=== PATIENT | female | born 1945 | race Caucasian/White ===

== ENCOUNTER 2018-06-05 05:24 | Inpatient (IN) ==
[2018-06-05] MEDS ORDERED: ceFAZolin 2 GM Premix Inj 2 GM/100 ML BAG IV.SIG PRN (05:42)
[2018-06-05] MEDS ORDERED: Chlorhexidine Gluconate 2% 1 Pack (2 Cloths) TOPICAL SCH (05:45)
[2018-06-05] MEDS ORDERED: Chlorhexidine 4% Topical 120 APPLIC/120 ML Bottle TOPICAL SCH (05:45)
[2018-06-05] MEDS ORDERED: Sodium Chlor 0.9% Inj 80 ML, Bupivacaine Liposo PF 1.3% Inj 20 ML P-ARTICULR SCH ×2 (05:45)
[2018-06-05] MEDS ORDERED: Metoprolol Tartrate 25 MG Tablet PO SCH (05:45)
[2018-06-05] MEDS ORDERED: Tranexamic Acid Inj 1,025 MG in Sodium Chlor 0.9% Inj 100 ML IV.SIG SCH ×2 (06:00→08:44)
[2018-06-05] MEDS ORDERED: Sodium Chlor 0.9% Inj 500 ML IV.SIG SCH (06:00)
[2018-06-05] MEDS ORDERED: Bupivacaine/Dextrose 0.75% Inj 2 ML Ampul ONE (06:02)
[2018-06-05] MEDS ORDERED: Propofol Inj 500 MG/50 ML Vial ONE (06:02)
[2018-06-05] MEDS ORDERED: Bupivacaine Liposomal PF 1.3% Inj 20 ML Vial ONE (06:15)
[2018-06-05] MEDS ORDERED: Clindamycin Inj 900 MG/6 ML Vial ONE (06:34)
[2018-06-05] MEDS ORDERED: Lidocaine PF 1% Inj 5 ML Syringe INFILTRATN ONE (07:22)
[2018-06-05] MEDS ORDERED: Phenylephrine/NS 1000 MCG/10ML Syringe IV.PUSH ONE (07:22)
[2018-06-05] MEDS ORDERED: SODIUM CHLOR 0.9% IV.SIG ONE (08:50)
[2018-06-05] MEDS ORDERED: TRANEXAMIC ACID IV.SIG ONE (08:50)
[2018-06-05] MEDS ORDERED: Post-op Orders (for Pharmacy) OTHER STA (08:50)
[2018-06-05] MEDS ORDERED: Morphine Inj 4 MG/ML Vial IV.PUSH PRN (08:50)
[2018-06-05] MEDS ORDERED: Acetaminophen 325 MG Tablet PO PRN (08:50)
[2018-06-05] MEDS ORDERED: Aluminum/Magnesium/Simethacone Susp 30 ML UDC PO PRN (08:50)
[2018-06-05] MEDS ORDERED: Zolpidem Tartrate 5 MG Tablet PO PRN (08:50)
[2018-06-05] MEDS ORDERED: Bisacodyl 10 MG Supp RECTAL PRN (08:50)
--- NOTE | 2018-06-05 08:54 | P.DCO ---
- Physical Therapy Physical Therapy: Gait training Knee: Total knee, Protocol: Right, Gait training, Full weight bearing Right Lower Extremity Weight Bearing: Weight bearing as tolerated Right Lower Extremity Range of Motion: Active ROM (Active, active assisted and passive range of motion. Range of motion goal is 0 extension to 130 of flexion which is what was accomplished in the operating room.) - Nursing Nursing: Dressing changes Dressing changes: Daily dressing change, Coverderm/Primapore Additional instructions: Do not remove Dermabond Prineo. - Certification Need for Home Health services: I have seen patient Natacha Cifuentes on 06/05/18. My clinical findings support the need for the requested home health care services because: Need for Home Health Services: Deconditioned with increased weakness, Limited ability to care for self, High risk of falls Homebound Certification: I certify that my clinical findings support that this patient is homebound because: Homebound Certification: Post-op weakness, Unsteady gait/balance, Unsafe to leave home unassisted
[2018-06-05] MEDS ORDERED: [UNRECOGNIZED DRUG - REMARK] PO SCH (09:00)
[2018-06-05] MEDS ORDERED: Non-Formulary Drug (Omega-3s-Dha-Epa-Fish Oil [Omega-3 Fish Oil] 1 CAP) PO SCH (09:00)
[2018-06-05] MEDS ORDERED: COENZYME Q10 30 MG PO SCH (09:00)
--- NOTE | 2018-06-05 09:01 | P.OP ---
- Preoperative Diagnosis (1) Primary osteoarthritis of right knee - Postoperative Diagnosis (1) Primary osteoarthritis of right knee Date of procedure: 06/05/18 Procedure: Right total knee arthroplasty using [place] Triathlon prosthesis (uncemented). Anesthesia: regional (Adductor canal block), local (Exparel), spinal Surgeon: Pineda Szymanski MD Manager Configuration: Maurizio Lora Estimated blood loss (mL): 150 Tourniquet time (min): 0 Pathology: none sent Operation and Findings: Indications and Findings: This 72-year-old woman has had right knee pain for several years which began to increase substantially about 6 months ago. This is been functionally disabling and activities of daily living. She has an ambulation tolerance of 1/4 mile. She has pain when sitting. She has pain when ascending and descending stairs and standing from a seated position. She has not responded to conservative measures including analgesics, activity modification, exercise, intra-articular corticosteroids and physical therapy. She uses ambulatory aids. She cannot take anti-inflammatory agents because of gastritis. Physical findings showed some genu valgum with medial laxity, tenderness in the medial compartment greater than lateral. In addition she has crepitation on motion. X-rays show significant loss of articular cartilage to [id number] in the medial compartment, osteophytes and subchondral sclerosis. Operative findings: There is significant osteoarthritis in the right knee with loss of articular cartilage to [id number] in the medial compartment, erosion to expose subchondral bone on the lateral compartment and patellofemoral disease as well. There were osteophytes. There is subchondral sclerosis in the medial compartment. The prosthesis used was a [place] Triathlon prosthesis. The femur was a size 5, cruciate retaining, uncemented. The tibial baseplate was a size 5 Tritanium with a 9 mm cruciate retaining X3 polyethylene spacer. The patella was a size 32 mm asymmetric Tritanium backed. The patient was brought to the clean-air operating suite after administration of a regional anesthetic by adductor canal block. A spinal anesthetic was administered. The position was supine with a small bolster under the hip on the operative side. A pneumatic tourniquet was applied to the upper thigh. The lower extremity was prepped with alcohol, Hibiclens and ChloraPrep and draped in the usual manner with the knee draped free. An appropriate timeout procedure was carried out. An incision was made from about 3 fingerbreadths above the superior medial pole of patella down the tibial tubercle on the medial side. The incision was deepened through the subcutaneous tissue to the retinacular structures which were exposed medially and laterally. A medial retinacular incision was made from the superior medial pole of patella down the tibial tubercle and up into the quadriceps tendon, splitting it longitudinally in the medial one third. The patella was reflected. The infrapatellar fat pad was debulked. The anterior cruciate ligament was excised. Medial and lateral meniscectomies were initiated. Fenestrations were made in the distal femur and proximal tibia for intramedullary referencing guides. The distal femoral cutting guide and jig were assembled for a 5, 8 mm cut. When this was fit into position,the cutting block was stabilized with pins. The jig was removed. The distal femoral cut was completed with the oscillating saw. The sizing guide was positioned in place along Whitesides line and the epicondylar axis and stabilized with pins. The femoral size was determined as noted above. The 4-in-1 cutting block was positioned in place. Anterior and posterior cuts were made followed by posterior and anterior chamfer cuts taking care to prevent injury to ligamentous structures. Osteophytes were trimmed from the distal femur. A bone plug was placed into the fenestration of the distal femur. The proximal tibia was exposed. The medial and lateral meniscectomies were completed. The proximal tibial cutting guide was positioned in place and stabilized with a pin for rotation. The depth of cut was verified with a stylus off the high side. The cutting block was stabilized with pins. The jig was removed. The depth of cut was verified and adjusted appropriately with the use of the spacer block. The proximal tibial cut was made with the oscillating saw taking care to prevent injury to neurovascular and ligamentous structures. Proximal tibial bone was removed. Local anesthetic was administered with Exparel in the posterior capsule. The tibial baseplate trial was positioned in place. After verifying the appropriate size, the base plate trial was positioned in place along with its spacer. The femoral component was impacted into place. The alignment was checked. The tibial baseplate was pinned in place on the tibia. Attention was directed to the patella. The patella drill guide was positioned in place for the appropriate sized patella. Patellar drilling was then carried out. The trial patella was positioned in place. The knee was taken through a range of motion which was easily 0 extension to 130. The patella trial was removed. The femoral drill holes were made. The femoral trials were removed. The tibial spacer was removed. A bone plug was placed into the proximal tibia. The tibial punch was impacted through the proximal tibial punch guide. This was all removed followed by placement of the tibial drill guide. The tibial drill holes were made. The guide was removed. The cut ends of bone were cleaned with pulse lavage. The tibial baseplate was impacted into place and seated appropriately. The spacer was inserted. The the femoral component was impacted into place and seated appropriately. The patella component was seated with the patellar vice and tightened appropriately. The knee was taken through a range of motion which was comparable to the previous range of motion with excellent stability in flexion and extension and appropriate patellofemoral tracking. The remainder of the Exparel was injected throughout the knee as a local anesthetic. Drains were brought out the superior lateral aspect of the suprapatellar pouch. Wound closure commenced using 0 Vicryl interrupted [id number] sutures for the capsular and fascial structures, 2-0 Vicryl interrupted simple sutures with buried knots for the subcutaneous tissues and 4-0 Monocryl, continuous subcuticular closure for the skin. The wound was dressed with Dermabond Prineo followed by a dry sterile dressing. Sterile soft roll with a cooling pad and Renzo bandage from the base of the toes to mid thigh were applied. Patient was transferred from the operating room to the recovery room in satisfactory condition having tolerated procedure well. Counts were correct. Specimens: None. Estimated blood loss: 150 mL
[2018-06-05] MEDS: Loratadine 10 MG Tablet PO SCH (09:44)
[2018-06-05] MEDS: Calcium Carbonate 500 MG Tablet PO SCH (09:45)
[2018-06-05] MEDS: Senna/Docusate Sodium 8.6/50 MG Tablet PO SCH ×2 (09:45→20:39)
[2018-06-05] MEDS: Tolterodine Tartrate LA 4 MG Capsule PO SCH ×2 (09:45→20:39)
[2018-06-05] MEDS: Levothyroxine 75 MCG Tablet PO SCH (09:45)
[2018-06-05] MEDS: Ketorolac Inj 30 MG/ML (IVP) Vial IV.PUSH SCH ×3 (09:46→20:38)
[2018-06-05] MEDS ORDERED: *morphine SULFATE 4 MG/ML PERIprocedure ONLY ONE (11:15)
--- NOTE | 2018-06-05 11:16 | XR ---
EXAM DATE: 06/05/2018 10:56 AM EDT AGE/SEX: 72 years / Female INDICATIONS: Post op right knee surgery. CLINICAL DATA: This is the patient's initial encounter. Patient reports that signs and symptoms have been present for 1 day and indicates a pain score of 0/10. MEDICAL/SURGICAL HISTORY: None. None. COMPARISON: POI, XR KNEE COMPLETE, RIGHT, 03/26/2018. . FINDINGS: The patient is status post right total knee arthroplasty. Tibial and femoral components and patellar components appear well seated. Surgical drain, subcutaneous air and fluid identified. CONCLUSION: Postoperative changes right knee arthroplasty. Electronically signed by: David Childress MD 06/05/2018 11:15 AM EDT
--- NOTE | 2018-06-05 17:42 | P.CON ---
History of Present Illness Service: Hospitalist Consult date: 06/05/18 Requesting Physician: Pineda Szymanski Reason for Consult: Medical management Primary Care Provider: Pankaj Concepcion MD Family Provider: Pankaj Concepcion MD Chief Complaint: Right knee pain History of Present Illness: Patient is a 72-year-old female who has a past medical history of arthritis, asthma, GERD, hyperlipidemia, hypertension, hypothyroidism with partial thyroidectomy, and [place] was admitted by surgery due to increasing right knee pain over several years. It became significantly worse 6 months ago and has been interfering with daily living. Patient failed conservative management. X-rays showed significant loss of articular cartilage to bone-on- bone in the medial compartment, osteophytes and subchondral sclerosis. Right total knee arthroplasty was performed 06/05/[address] Szymanski. Patient is seen in room preparing to go to the restroom. She reports that she is in some pain but it is well denies any chest pain or shortness of breath. No nausea vomiting or diarrhea. She has not yet voided post surgery. Review of Systems All other systems reviewed negative except as stated in HPI PMFSH - History History Provided By: Patient, Medical Record - Medical History Medical History: Medical History (Last Reviewed 06/05/18 @ 17:35 by LARISSA Gonsalves) Arthritis Asthma Cataract GERD (gastroesophageal reflux disease) Gastritis High cholesterol History of endoscopy Hx of headache Hypertension Hypothyroidism Joint pain Kidney stones Myocardial infarction Vertigo Wears glasses - Surgical History Surgical History: Surgical History (Last Reviewed 06/05/18 @ 17:35 by LARISSA Gonsalves) History of colonoscopy History of partial thyroidectomy History of pelvic surgery History of repair of left rotator cuff Hx of cholecystectomy Hx of tonsillectomy - Family History Family History: Family History (Last Reviewed 06/05/18 @ 17:35 by LARISSA Gonsalves) Other Family history non-contributory - Tobacco History Second Hand Smoke Exposure: No Smoking Status: Never smoker - Alcohol History How Often Do You Have a Drink Containing Alcohol: Never - Substance Use History Substance History: No History of Abuse - Travel History Recent Travel in the [place] Within the Last 8 Weeks: No Recent Travel Out of the Country Within the Last 8 Weeks: No - Immunization History Tetanus Immunization: <5 Years Hx Influenza Vaccine This Season: Yes Medications and Allergies Active Medications: Active Medications Acetaminophen (Tylenol) 650 mg PO Q6H PRN PRN Reason: Pain Less Than 3 On Scale Hydrocodone Bitart/Acetaminophen ([place] 7.5/325) 1 tab PO Q4H PRN PRN Reason: PAIN SCALE 4 TO 6 MODERATE Hydrocodone Bitart/Acetaminophen ([place] 7.5/325) 2 tab PO Q6H PRN PRN Reason: PAIN SCALE 7 TO 10 SEVERE Al Hydrox/Mg Hydrox/Simethicone (Mag-Al Plus Susp Liq) 30 ml PO Q6H PRN PRN Reason: INDIGESTION Al Hydroxide/Mg Hydroxide (Milk Of Magnesia Liq) 30 ml PO BID PRN PRN Reason: Mild Constipation Albuterol (Ventolin Hfa Inh) 1 puff INH Q4H PRN PRN Reason: Shortness Of Breath Aspirin (Aspirin Chew) 81 mg PO BID [facility] Last Admin: 06/05/18 09:43 Dose: Not Given Bisacodyl (Dulcolax Supp) 10 mg RECTAL DAILY PRN PRN Reason: SEVERE CONSITIPATION Chlorhexidine Gluconate (Chlorhexidine 2% Cloth) 3 pack TOPICAL TUNNEL DRIER OPERATOR [facility] Stop: 06/08/18 05:39 Last Admin: 06/05/18 05:40 Dose: 3 pack Chlorhexidine Gluconate (Hibiclens 4% Topical) 1 applicatio TOPICAL ONCE [facility] Stop: 06/09/18 05:44 Last Admin: 06/05/18 06:00 Dose: 1 applicatio Diphenhydramine HCl (Benadryl) 25 mg PO Q6H PRN PRN Reason: ITCHING Cefazolin/Sodium Chloride (Ancef 2 Gm Premix Inj) 2 gm in 100 mls @ 200 mls/hr IV.SIG TUNNEL DRIER OPERATOR PRN PRN Reason: PRE-OP GIVE IN OR Stop: 06/05/18 22:00 Last Infusion: 06/05/18 07:58 Dose: Infused Lactated Ringer's (Lr 1000 Ml Inj) 1,000 mls @ 30 mls/hr IV.SIG .Q24H [facility] Stop: 06/08/18 05:39 Last Infusion: 06/05/18 07:58 Dose: Infused Sodium Chloride (Ns Inj) 500 mls @ 30 mls/hr IV.SIG .Q10H [facility] Stop: 06/08/18 05:39 Cefazolin Sodium 1,000 mg/ (Sodium Chloride) 100 mls @ 200 mls/hr IV.SIG Q6H [facility] Stop: 06/06/18 01:29 Last Infusion: 06/05/18 13:43 Dose: Infused Lactated Ringer's (Lr 1000 Ml Inj) 1,000 mls @ 80 mls/hr IV.CONT .[id number] [facility] Last Admin: 06/05/18 09:44 Dose: 80 mls/hr Ketorolac Tromethamine (Toradol Inj) 15 mg IV.PUSH Q6H [facility] Stop: 06/07/18 03:01 Last Admin: 06/05/18 15:47 Dose: 15 mg Lactulose (Lactulose Liq) 30 ml PO DAILY PRN PRN Reason: SEVERE CONSITIPATION Levothyroxine Sodium (Synthroid) 75 mcg PO DAILY [facility] Last Admin: 06/05/18 09:45 Dose: Not Given Loratadine (Claritin) 10 mg PO DAILY [facility] Last Admin: 06/05/18 09:44 Dose: Not Given Losartan Potassium (Cozaar) 25 mg PO DAILY [facility] Last Admin: 06/05/18 09:44 Dose: Not Given Metoprolol Tartrate (Lopressor) 25 mg PO TUNNEL DRIER OPERATOR [facility] Stop: 06/08/18 05:39 Last Admin: 06/05/18 06:20 Dose: Not Given Miscellaneous Information ([facility] Nursing Information) 1 each OTHER UNSCH PRN PRN Reason: SEE LABEL COMMENTS Stop: 06/06/18 09:18 Morphine Sulfate (Morphine Inj) 2 mg IV.PUSH Q3H PRN PRN Reason: BREAKTHROUGH PAIN Ondansetron HCl (Zofran Odt) 4 mg PO Q6H PRN PRN Reason: NAUSEA OR VOMITING Pantoprazole Sodium (Protonix) 40 mg PO DAILY [facility] Last Admin: 06/05/18 09:45 Dose: Not Given Povidone Iodine (Betadine 5% Antisepsis Kit) 1 applicatio EACH NARE TUNNEL DRIER OPERATOR [facility] Stop: 06/08/18 05:39 Last Admin: 06/05/18 06:00 Dose: 1 applicatio Senna/Docusate Sodium (Breana-Colace) 1 tab PO BID [facility] Last Admin: 06/05/18 09:45 Dose: Not Given Sennosides (Senokot) 17.2 mg PO BID PRN PRN Reason: Moderate Constipation Sodium Chloride (Ns Flush) 2 ml IV.FLUSH PRN PRN PRN Reason: FLUSH AFTER USING IV ACCESS Sodium Chloride (Ns Flush) 2 ml IV.FLUSH BID [facility] Tolterodine Tartrate (Detrol La) 4 mg PO BID [facility] Last Admin: 06/05/18 09:45 Dose: Not Given Vitamin D (Vitamin D3) 1,000 unit PO DAILY [facility] Last Admin: 06/05/18 09:46 Dose: Not Given Zolpidem Tartrate (Ambien) 5 mg PO HS PRN PRN Reason: INSOMNIA Allergies Allergy/AdvReac Type Severity Reaction Status Date / Time adhesive Allergy Severe SKIN TEAR Verified 06/05/18 05:53 penicillin G Allergy Mild ITCHING; Verified 06/05/18 05:53 RASH albuterol Allergy Itching Verified 06/05/18 05:53 codeine AdvReac Nausea/Vomi Verified 06/05/18 05:53 ting Home Medications Medication Instructions Recorded Confirmed Type albuterol sulfate [ProAir HFA] 1 puff INHALATION Q4-6H PRN 05/24/18 06/05/18 History calcium citrate 400 mg PO DAILY 05/24/18 06/05/18 History cholecalciferol (vitamin D3) 1,000 unit PO DAILY 05/24/18 06/05/18 History [Vitamin D3] coenzyme Q10 [Co Q-10] 30 mg PO DAILY 05/24/18 06/05/18 History esomeprazole magnesium [Nexium] 40 mg PO DAILY 05/24/18 06/05/18 History fexofenadine [Janet Allergy] 180 mg PO DAILY 05/24/18 06/05/18 History fexofenadine [Janet Allergy] 180 mg PO DAILY 05/24/18 06/05/18 History levothyroxine 75 mcg PO DAILY 05/24/18 06/05/18 History losartan 25 mg PO DAILY 05/24/18 06/05/18 History hzjvh-[id number]-epa-fish oil [[place]-3 1 cap PO DAILY 05/24/18 06/05/18 History Fish Oil] trospium 20 mg PO BID 05/24/18 06/05/18 History Physical Exam Vital signs: Vital Signs 06/05/18 06:11 06/05/18 06:15 06/05/18 09:17 Temperature 97.9 F 97.5 F L Pulse Rate 81 83 91 H Respiratory Rate 18 16 Blood Pressure 126/70 99/57 L Pulse Oximetry 99 95 100 06/05/18 09:30 06/05/18 09:45 06/05/18 10:00 Temperature Pulse Rate 79 71 67 Respiratory Rate 16 16 16 Blood Pressure 106/64 128/75 117/70 Pulse Oximetry 100 100 100 06/05/18 11:12 06/05/18 12:00 06/05/18 16:00 Temperature 97.2 F L 96.3 F L Pulse Rate 66 65 79 Respiratory Rate 16 19 17 Blood Pressure 120/70 114/62 130/64 Pulse Oximetry 100 97 97 Intake & Output 06/04/18 06/05/18 06/05/18 18:59 06:59 18:59 Intake Total 1987.25 / Output Total 395 / 395 Balance 1593.25 / 1593.25 Weight 102.3 kg Intake: IV 1310.25 / 1310.25 LR 1000 mL Inj 1,000 ML @ 30 1000 / 1000 mls/hr IV.SIG .Q24H [facility] Rx#: [id number] Cyklokapron Inj 1,025 MG In NS 110.25 / 110.25 Inj 100 ML @ 200 mls/hr IV.SIG ONCE [facility] Rx#:[id number] Ancef 2 GM Premix Inj 2 gm In 100 / 100 100 ml @ 200 mls/hr IV.SIG TUNNEL DRIER OPERATOR PRN Rx#:[id number] Ancef Inj 1,000 MG In NS Inj 100 / 100 100 ML @ 200 mls/hr IV.SIG Q6H [facility] Rx#:[id number] Oral 240 / 240 Anesthesia Amount 290 / 290 Other 148 / 148 Output: Urine 0 / 0 Estimated Blood Loss 140 / 140 Wound Drainage 255 / 255 # 1 Right Knee Hemovac 255 / 255 Other: Other Intake Source Saline Solution # Voids 1 Date of Last Bowel Movement 06/04/18 Weight On Admission 102.3 kg Narrative: GENERAL: Well-nourished, well-developed adult female in no obvious distress. SKIN: Warm and dry. HEAD: Atraumatic. Normocephalic. CARDIOVASCULAR: Regular rate and rhythm. RESPIRATORY: No accessory muscle use. Clear to auscultation. Breath sounds equal bilaterally. GASTROINTESTINAL: Abdomen soft, non-tender, non-distended. Positive bowel sounds. MUSCULOSKELETAL: Extremities without clubbing, cyanosis, or edema. No obvious deformities. Right knee in canvas brace with drain. Sanguinous drainage. Right foot well perfused with no significant swelling. NEUROLOGICAL: Awake and alert. No obvious cranial nerve deficits. Motor grossly within normal limits. Normal speech. PSYCHIATRIC: Appropriate mood and affect; insight and judgment good. Assessment and Plan - Plan Patient is a 72-year-old female who has a past medical history of arthritis, asthma, GERD, hyperlipidemia, hypertension, hypothyroidism with partial thyroidectomy, and [place] was admitted by surgery due to increasing right knee pain over several years. Right total knee arthroplasty was performed by Dr. Szymanski. Right total knee arthroplasty -Managed by orthopedics -Case management consulted by orthopedics Hypertension -Continue losartan 25 mg Hypothyroidism -Continue levothyroxine 75 mcg Overactive bladder -Continue trospium Asthma -Albuterol as needed Discussed with: Patient and nurse Thank you for this consult. We appreciate the opportunity to assist you with the medical management of this patient.
[2018-06-06] MEDS: Ketorolac Inj 30 MG/ML (IVP) Vial IV.PUSH SCH ×2 (03:55→09:43)
[2018-06-06 04:32] LABS: Baso # (Auto) 0.1 th/mm3 (0.0-0.2); Baso % (Auto) 0.9 % (0.0-2.0); Eos # (Auto) 0.1 th/mm3 (0.0-0.4); Eos % (Auto) 1.5 % (0.0-4.0); Hematocrit 31.6 % (35.0-46.0); Hemoglobin 10.9 gm/dL (11.6-15.3); Lymph # (Auto) 1.3 th/mm3 (1.0-4.8); Lymph % (Auto) 17.6 % (9.0-44.0); Mean Corpuscular HGB Conc 34.3 % (32.0-36.0); Mean Corpuscular Hemoglobin 31.1 pg (27.0-34.0); Mean Corpuscular Volume 90.5 fL (80.0-100.0); Mean Platelet Volume 8.7 fL (7.0-11.0); Mono # (Auto) 0.6 th/mm3 (0.0-0.9); Mono % (Auto) 7.7 % (0.0-8.0); Neut # (Auto) 5.2 th/mm3 (1.8-7.7); Neut % (Auto) 72.3 % (16.0-70.0); Platelet Count 148 th/mm3 (150-450); Red Blood Count 3.49 mil/mm3 (4.00-5.30); Red Cell Distribution Width 12.8 % (11.6-17.2); White Blood Count 7.2 th/mm3 (4.0-11.0)
[2018-06-06 04:50] LABS: Calcium 8.1 mg/dL (8.5-10.1); Carbon Dioxide 24.8 meq/L (21.0-32.0); Potassium 3.8 meq/L (3.5-5.1)
--- NOTE | 2018-06-06 07:29 | P.PNOP ---
Subjective Interval history: Postop day #1 She is doing relatively well. She has minimal complaints related to the knee at this time. Physical therapy reports that the ambulation distance was 10 feet, then 25 feet. The range of motion was 0 extension to 88 of flexion. Physical Exam Vital signs: Vital Signs 06/05/18 09:17 06/05/18 09:30 06/05/18 09:45 Temperature 97.5 F L Pulse Rate 91 H 79 71 Respiratory Rate 16 16 16 Blood Pressure 99/57 L 106/64 128/75 Pulse Oximetry 100 100 100 06/05/18 10:00 06/05/18 11:12 06/05/18 12:00 Temperature 97.2 F L Pulse Rate 67 66 65 Respiratory Rate 16 16 19 Blood Pressure 117/70 120/70 114/62 Pulse Oximetry 100 100 97 06/05/18 16:00 06/05/18 20:00 06/06/18 00:00 Temperature 96.3 F L 98.7 F 98.9 F Pulse Rate 79 83 103 H Respiratory Rate 17 18 18 Blood Pressure 130/64 105/54 L 93/53 L Pulse Oximetry 97 99 95 06/06/18 04:00 Temperature 98.3 F Pulse Rate 100 H Respiratory Rate 18 Blood Pressure 103/60 Pulse Oximetry 95 Intake & Output 06/05/18 06/06/18 06/06/18 18:59 06:59 18:59 Intake Total 2588.25 / 2588.25 500 / 500 Output Total 395 / 395 60 / 60 Balance 2193.25 / 2193.25 440 / 440 Weight 102.3 kg Intake: IV 1310.25 / 1310.25 100 / 100 LR 1000 mL Inj 1,000 ML @ 80 0 / 0 mls/hr IV.CONT .[id number] [facility] Rx# :[id number] LR 1000 mL Inj 1,000 ML @ 30 1000 / 1000 mls/hr IV.SIG .Q24H [facility] Rx#: [id number] Cyklokapron Inj 1,025 MG In NS 110.25 / 110.25 Inj 100 ML @ 200 mls/hr IV.SIG ONCE [facility] Rx#:[id number] Ancef 2 GM Premix Inj 2 gm In 100 / 100 100 ml @ 200 mls/hr IV.SIG ENGINEER INTERN PRN Rx#:[id number] Ancef Inj 1,000 MG In NS Inj 100 / 100 100 / 100 100 ML @ 200 mls/hr IV.SIG Q6H [facility] Rx#:[id number] Oral 840 / 840 400 / 400 Anesthesia Amount 290 / 290 Other 148 / 148 Output: Urine 0 / 0 Estimated Blood Loss 140 / 140 Wound Drainage 255 / 255 60 / 60 # 1 Right Knee Hemovac 255 / 255 60 / 60 Other: Other Intake Source Saline Solution # Voids 2 4 Date of Last Bowel Movement 06/04/18 06/04/18 Narrative: She is resting comfortably, supine in bed. The dressing is somewhat in disarray. The neurovascular status is intact. The wound is clean and dry. Results - Labs CBC & Chem 7: 06/06/18 03:31 06/06/18 03:31 Laboratory Results - last 24 hr 06/06/18 06/06/18 03:31 03:31 WBC 7.2 RBC 3.49 L Hgb 10.9 L Hct 31.6 L MCV 90.5 MCH 31.1 MCHC 34.3 RDW 12.8 Plt Count 148 L MPV 8.7 Neut % (Auto) 72.3 H Lymph % (Auto) 17.6 [place] % (Auto) 7.7 Eos % (Auto) 1.5 Baso % (Auto) 0.9 Neut # (Auto) 5.2 Lymph # (Auto) 1.3 [place] # (Auto) 0.6 Eos # (Auto) 0.1 Baso # (Auto) 0.1 WBC Differential . Differential Comment Auto diff final Sodium 142 Potassium 3.8 Chloride 108 H Carbon Dioxide 24.8 Anion Gap 9 BUN 15 Creatinine 0.74 Estimated GFR 78 L Random Glucose 108 H Calcium 8.1 L - Imaging Impressions Knee X-Ray 06/05/18 08:48 CONCLUSION: Postoperative changes right knee arthroplasty. - Procedures Right total knee arthroplasty using [place] Triathlon prosthesis (uncemented) on 06/06/2018. Assessment and Plan - Ortho Post Op Day # 1 - Problem List (1) Status post total right knee replacement not using cement Code(s): Z96.651 - Presence of right artificial knee joint Status: Acute Plan: Continue postop care and PT. I have stressed the importance of working on extension as well as flexion. - Assessment and Plan Condition: Good. Orthopedically stable. DVT prophylaxis: TEDs, aspirin, sequentials. Discharge plans: Home with home health care. An appointment was scheduled through the office. Prescriptions: [place] 7.5/325; Patient is having significant pain caused by a right total knee arthroplasty which will last more than 3 days. Trial of Tylenol has not helped. I believe that it is medically necessary to treat patients pain because it is affecting patients ability to participate in postoperative rehabilitation and perform activities of daily living in a comfortable and efficient manner.
--- NOTE | 2018-06-06 07:49 | P.DS ---
Date of admission: 06/05/18 09:10 Primary care physician: Pankaj Concepcion MD Attending physician on discharge: Pineda Anne Anticipated date of discharge: 06/06/18 Brief History from admission: This 72-year-old woman has had long-standing right knee pain nonresponsive to conservative measures as detailed in the history and physical examination. She had limited activities of daily living because of the pain, difficulty walking any distance and aggressive deformity. Her physical findings showed medial laxity, medial tenderness, crepitation throughout the entire range of motion and an effusion. Her x-rays showed severe osteoarthritis with loss of articular cartilage to expose subchondral bone in the medial compartment with osteophytes and subchondral sclerosis. There is also arthritis throughout the knee evidenced by osteophytes. DS: Diagnosis - Discharge Diagnosis (1) Status post total right knee replacement not using cement Status: Acute Diagnosis: Principal (2) Primary osteoarthritis of right knee Status: Acute Diagnosis: Principal DS: Medications - Discharge Medications Prescriptions: hydrocodone-acetaminophen 1 tab PO Q4H PRN 7 Days #42 tab PRN Reason: Pain, Severe DS: Summary Hospital Course: The patient was admitted as noted above. The above noted operative procedure was carried out that day. Preoperatively prophylactic antibiotics were administered Ancef according to protocol. These were continued postoperatively. The patient also received tranexamic acid to help with hemostasis according to protocol. In the postanesthesia care unit there were mechanical methods of DVT prophylaxis in the form of GENIE stockings and sequentials initiated. Physical therapy was initiated on the day of surgery. On postoperative day #1 physical therapy continued. The use of the continuous passive motion device continued. DVT prophylaxis with aspirin 81 mg was initiated at this time. The patient continued physical therapy throughout the hospitalization. The distance walked and range of motion improved throughout the hospitalization. The patient was discharged on postoperative day 1 with the disposition being to home with home health care. An appointment for follow-up was made prior to admission. - Time Spent with Patient Total time spent providing and/or coordinating discharge services: Less than 30 minutes - Quality: VTE Deep Vein Thrombosis/Pulmonary Embolism Present on Admission: No Exam Vital signs: Vital Signs 06/05/18 09:17 06/05/18 09:30 06/05/18 09:45 Temperature 97.5 F L Pulse Rate 91 H 79 71 Respiratory Rate 16 16 16 Blood Pressure 99/57 L 106/64 128/75 Pulse Oximetry 100 100 100 06/05/18 10:00 06/05/18 11:12 06/05/18 12:00 Temperature 97.2 F L Pulse Rate 67 66 65 Respiratory Rate 16 16 19 Blood Pressure 117/70 120/70 114/62 Pulse Oximetry 100 100 97 06/05/18 16:00 06/05/18 20:00 06/06/18 00:00 Temperature 96.3 F L 98.7 F 98.9 F Pulse Rate 79 83 103 H Respiratory Rate 17 18 18 Blood Pressure 130/64 105/54 L 93/53 L Pulse Oximetry 97 99 95 06/06/18 04:00 Temperature 98.3 F Pulse Rate 100 H Respiratory Rate 18 Blood Pressure 103/60 Pulse Oximetry 95 Intake & Output 06/05/18 06/06/18 06/06/18 18:59 06:59 18:59 Intake Total 2588.25 / 2588.25 500 / 500 Output Total 395 / 395 60 / 60 Balance 2193.25 / 2193.25 440 / 440 Weight 102.3 kg Intake: IV 1310.25 / 1310.25 100 / 100 LR 1000 mL Inj 1,000 ML @ 80 0 / 0 mls/hr IV.CONT .[id number] MONY Rx# :[id number] LR 1000 mL Inj 1,000 ML @ 30 1000 / 1000 mls/hr IV.SIG .Q24H MONY Rx#: [id number] Cyklokapron Inj 1,025 MG In NS 110.25 / 110.25 Inj 100 ML @ 200 mls/hr IV.SIG ONCE MONY Rx#:[id number] Ancef 2 GM Premix Inj 2 gm In 100 / 100 100 ml @ 200 mls/hr IV.SIG SEALER OPERATOR PRN Rx#:[id number] Ancef Inj 1,000 MG In NS Inj 100 / 100 100 / 100 100 ML @ 200 mls/hr IV.SIG Q6H MONY Rx#:[id number] Oral 840 / 840 400 / 400 Anesthesia Amount 290 / 290 Other 148 / 148 Output: Urine 0 / 0 Estimated Blood Loss 140 / 140 Wound Drainage 255 / 255 60 / 60 # 1 Right Knee Hemovac 255 / 255 60 / 60 Other: Other Intake Source Saline Solution # Voids 2 4 Date of Last Bowel Movement 06/04/18 06/04/18 Narrative: She is resting comfortably, supine in bed. The dressing is dry and in some disarray. The neurovascular status is intact. The wound is clean and dry and healing well with no signs of infection. Results Procedures completed during hospitalization: Right total knee arthroplasty using [place] Triathlon prosthesis (uncemented) on 06/06/2018. Labs on day of discharge: Labs from last 24 hours 06/06/18 06/06/18 03:31 03:31 WBC 7.2 RBC 3.49 L Hgb 10.9 L Hct 31.6 L MCV 90.5 MCH 31.1 MCHC 34.3 RDW 12.8 Plt Count 148 L MPV 8.7 Neut % (Auto) 72.3 H Lymph % (Auto) 17.6 [place] % (Auto) 7.7 Eos % (Auto) 1.5 Baso % (Auto) 0.9 Neut # (Auto) 5.2 Lymph # (Auto) 1.3 [place] # (Auto) 0.6 Eos # (Auto) 0.1 Baso # (Auto) 0.1 WBC Differential . Differential Comment Auto diff final Sodium 142 Potassium 3.8 Chloride 108 H Carbon Dioxide 24.8 Anion Gap 9 BUN 15 Creatinine 0.74 Estimated GFR 78 L Random Glucose 108 H Calcium 8.1 L - Impressions ITS Impressions Knee X-Ray 06/05/18 08:48 CONCLUSION: Postoperative changes right knee arthroplasty. Discharge Plan - Discharge Disposition Patient Disposition: /Home Health Service - Discharge Condition Condition: Stable - Discharge Order Discharge Orders: Discharge Order (Routine); Ordered 06/06/18 Ordered By: Pineda Anne - Discharge Details Anticipated Discharge Date: 06/06/18 - Physicians Team Primary Care Provider: Pankaj Concepcion Attending Provider: Pineda Anne Other Providers: Ajit Ye DO ; [facility] - Rxs /Orders / Referrals /Forms Prescriptions: New aspirin 81 mg Tablet,Chewable 81 mg PO BID RF: 0 hydrocodone-acetaminophen 7.5-325 mg Tablet 1 tab PO Q4H PRN (Reason: Pain, Severe) 7 Days Qty: 42 RF: 0 Continue albuterol sulfate [ProAir HFA] 90 mcg/actuation Hfa Aerosol Inhaler 1 puff INHALATION Q4-6H PRN (Reason: Shortness Of Breath) calcium citrate 200 mg (950 mg) Tablet 400 mg PO DAILY cholecalciferol (vitamin D3) [Vitamin D3] 1,000 unit Capsule 1,000 unit PO DAILY coenzyme Q10 [Co Q-10] 10 mg Capsule 30 mg PO DAILY esomeprazole magnesium [Nexium] 40 mg Capsule,Delayed Release(Dr/Ec) 40 mg PO DAILY fexofenadine [Janet Allergy] 60 mg Tablet 180 mg PO DAILY fexofenadine [Janet Allergy] 60 mg Tablet 180 mg PO DAILY levothyroxine 75 mcg Capsule 75 mcg PO DAILY losartan 25 mg Tablet 25 mg PO DAILY [id number]-cyo-epa-fish oil [[place]-3 Fish Oil] 300-1,000 mg Capsule 1 cap PO DAILY trospium 20 mg Tablet 20 mg PO BID Referrals: Pankaj Concepcion MD [Primary Care Provider] - See Instructions ( Please call the physician's office to book the appointment to be seen by your Primary Care Physician.) Pineda Anne MD [Physician] - See Instructions - Discharge Instructions Patient Printed Instructions: Hydrocodone/Acetaminophen (By mouth), How to Choose and Use a Walker (GEN), Narcotic Pain Management (DC), Knee Replacement ( DC) Additional Instructions: KEEP YOUR FOLLOWUP APPOINTMENT WITH DR. ANNE. RX FOR NORCO 7.5/325 SENT WITH PATIENT - Post Discharge Care Plan Care Plan Goals: Your Health Problems: Goals to Promote Your Health: * To prevent worsening of your condition * To maintain your health at the optimal level Directions to Meet Your Goals: * Take your medications as prescribed * Follow your dietary instruction * Follow activity as directed * Keep your appointments as scheduled * Take your immunizations and boosters as scheduled * If your symptoms worsen call your PCP * If no PCP go to Urgent Care or Emergency Room Smoking is dangerous to your health. Avoid second hand smoke. You may reach the 24-hour crisis hotline for domestic abuse at . * * Discharge Care Plan Goals for Total Knee Replacement You have undergone knee replacement surgery. Your doctor replaced your painful joint with an artificial joint to relieve pain and restore movement. Here are some goals to help you heal well. Directions to Meet your Goals: 1. Activity & Exercises: * Take pain medicine as directed by your doctor. * Sit in chairs with arms. The arms make it easier for you to stand up or sit down. * Dont sit for more than 30 to 45 minutes at one time. * Nap if you are tired, but dont stay in bed all day. * Sleep with a pillow under your ankle, not your knee. Be sure to change the position of your leg during the night. * Wear the support stockings you were given in the hospital as directed by your surgeon. 2. Prevent Falls/Injury: The talbot to successful recovery is movement with walking and exercising your knee as directed by your doctor. * Arrange your household to keep the items you need handy. Keep everything else out of the way. * Remove items that may cause you to fall, such as throw rugs and electrical cords. * Use nonslip bath mats, grab bars, an elevated toilet seat, and a shower chair in your bathroom * Sit on a shower stool or chair when you shower to keep from falling. * Until your balance, flexibility, and strength improve, use a cane, crutches, a walker, handrails, or someone to help you. * Keep your hands free by using a backpack, varsha pack, apron, or pockets to carry things * Walk up and down stairs with support. Try one step at a time. Use the railing if possible. * Dont drive until your doctor says its OK. * Dont drive while you are taking opioid pain medicine. 3. Precautions: * Prevent infection. Any infection will need to be treated immediately. Call your doctor right away if you think you might have an infection. * Tell your dentist that you have an artificial joint and take antibiotics as prescribed before any dental work. * Tell all your healthcare providers about your artificial joint before any medical procedure. * Maintain a healthy weight. Get help to lose any extra pounds. Added body weight puts stress on the knee. * Your medications may include blood-thinning medicine to prevent blood clots or antibiotics to prevent infection-prevent any falls or cuts 4. Incision Care: * Prevent infection by washing your hands often. If an infection occurs, it will need to be treated right away. * Call your doctor right away if you think you may have an infection. Symptoms include a fever or an incision that leaks white, green, or yellow fluid. * Don't soak your incision in water until your doctor says its OK. This means no hot tubs, bathtubs, or swimming pools. * Follow your doctor's instructions for changing the dressing. * Dont rub the incision, or apply creams or lotions to it. * If you notice any redness or drainage around the bandage site, contact your surgeon's office immediately. 5. Follow-Up: Do Not miss your follow-up appointment. Keep up with all your appointments and yearly check ups When to call your doctor: Call your doctor right away if you have: Fever of 100.4F (38C) or higher, or as directed by your doctor Shaking chills Stiffness, or inability to move the knee Increased swelling in your leg Increased redness, tenderness, or swelling in or around the knee incision Drainage from the knee incision Increased knee pain Call 911: Call 911 right away if you have: Chest pain Shortness of breath Any pain or tenderness in your calf
[2018-06-06] MEDS: Levothyroxine 75 MCG Tablet PO SCH (09:41)
[2018-06-06] MEDS: Loratadine 10 MG Tablet PO SCH (09:41)
[2018-06-06] MEDS: Calcium Carbonate 500 MG Tablet PO SCH (09:42)
[2018-06-06] MEDS: Tolterodine Tartrate LA 4 MG Capsule PO SCH (09:42)
[2018-06-06] MEDS: Senna/Docusate Sodium 8.6/50 MG Tablet PO SCH (09:42)
--- NOTE | 2018-06-06 11:57 | P.PN ---
Subjective Interval history: She is seen sitting up in bedside chair. She tells me that she would like to go home. She is a little sleepy; confirms that she has multiple people at home to assist her. Denies any chest pain or shortness of breath. No dizziness or syncope. No nausea vomiting or diarrhea. Tolerating meals well and having normal urination and bowel movements. Physical Exam Vital signs: Vital Signs 06/05/18 12:00 06/05/18 16:00 06/05/18 20:00 Temperature 97.2 F L 96.3 F L 98.7 F Pulse Rate 65 79 83 Respiratory Rate 19 17 18 Blood Pressure 114/62 130/64 105/54 L Pulse Oximetry 97 97 99 06/06/18 00:00 06/06/18 04:00 06/06/18 08:00 Temperature 98.9 F 98.3 F 98.3 F Pulse Rate 103 H 100 H 96 H Respiratory Rate 18 18 18 Blood Pressure 93/53 L 103/60 124/75 Pulse Oximetry 95 95 95 Intake & Output 06/05/18 06/06/18 06/06/18 18:59 06:59 18:59 Intake Total 2588.25 / 2588.25 600 / 600 Output Total 395 / 395 60 / 60 Balance 2193.25 / 2193.25 540 / 540 Weight 102.3 kg Intake: IV 1310.25 / 1310.25 200 / 200 LR 1000 mL Inj 1,000 ML @ 80 0 / 0 mls/hr IV.CONT .[id number] MONY Rx# :[id number] LR 1000 mL Inj 1,000 ML @ 30 1000 / 1000 mls/hr IV.SIG .Q24H MONY Rx#: [id number] Cyklokapron Inj 1,025 MG In NS 110.25 / 110.25 Inj 100 ML @ 200 mls/hr IV.SIG ONCE MONY Rx#:[id number] Ancef 2 GM Premix Inj 2 gm In 100 / 100 100 ml @ 200 mls/hr IV.SIG INFORMATICS PHYSICIAN PRN Rx#:[id number] Ancef Inj 1,000 MG In NS Inj 100 / 100 200 / 200 100 ML @ 200 mls/hr IV.SIG Q6H MONY Rx#:[id number] Oral 840 / 840 400 / 400 Anesthesia Amount 290 / 290 Other 148 / 148 Output: Urine 0 / 0 Estimated Blood Loss 140 / 140 Wound Drainage 255 / 255 60 / 60 # 1 Right Knee Hemovac 255 / 255 60 / 60 Other: Other Intake Source Saline Solution # Voids 2 4 Date of Last Bowel Movement 06/04/18 06/04/18 Narrative: GENERAL: Well-nourished, well-developed adult female in no obvious distress. SKIN: Warm and dry. HEAD: Atraumatic. Normocephalic. CARDIOVASCULAR: Regular rate and rhythm. RESPIRATORY: No accessory muscle use. Clear to auscultation. Breath sounds equal bilaterally. GASTROINTESTINAL: Abdomen soft, non-tender, non-distended. Positive bowel sounds. MUSCULOSKELETAL: Extremities without clubbing, cyanosis, or edema. No obvious deformities. Right knee in canvas brace with drain. Sanguinous drainage. Right foot well perfused with no significant swelling. NEUROLOGICAL: Awake and alert. No obvious cranial nerve deficits. Motor grossly within normal limits. Normal speech. PSYCHIATRIC: Appropriate mood and affect; insight and judgment good. Results - Labs CBC & Chem 7: 06/06/18 03:31 06/06/18 03:31 Laboratory Results - last 24 hr 06/06/18 06/06/18 03:31 03:31 WBC 7.2 RBC 3.49 L Hgb 10.9 L Hct 31.6 L MCV 90.5 MCH 31.1 MCHC 34.3 RDW 12.8 Plt Count 148 L MPV 8.7 Neut % (Auto) 72.3 H Lymph % (Auto) 17.6 [place] % (Auto) 7.7 Eos % (Auto) 1.5 Baso % (Auto) 0.9 Neut # (Auto) 5.2 Lymph # (Auto) 1.3 [place] # (Auto) 0.6 Eos # (Auto) 0.1 Baso # (Auto) 0.1 WBC Differential . Differential Comment Auto diff final Sodium 142 Potassium 3.8 Chloride 108 H Carbon Dioxide 24.8 Anion Gap 9 BUN 15 Creatinine 0.74 Estimated GFR 78 L Random Glucose 108 H Calcium 8.1 L - Procedures Right total knee arthroplasty using [place] Triathlon prosthesis (uncemented) on 06/06/2018. Assessment and Plan - Plan Patient is a 72-year-old female who has a past medical history of arthritis, asthma, GERD, hyperlipidemia, hypertension, hypothyroidism with partial thyroidectomy, and MS was admitted by surgery due to increasing right knee pain over several years. Right total knee arthroplasty was performed by Dr. Szymanski. Right total knee arthroplasty -Managed by orthopedics -Case management consulted by orthopedics Hypertension -Continue losartan 25 mg Hypothyroidism -Continue levothyroxine 75 mcg Overactive bladder -Continue trospium Asthma -Albuterol as needed Discussed with: Patient and nurse Patient appears to be medically stable and ready for discharge. Discharge plan per orthopedics.
== END 2018-06-06 14:18 | disposition home health service (06) ==
LOC: HSDC 05:24 → EDSTATUS 07:00 → HSDI 09:10 → N06 11:34
PROVIDERS: ADMIT Orthopaedic Surgery; ATTEND Orthopaedic Surgery